=== PATIENT | male | born 1995 ===

== ENCOUNTER 2016-12-12 12:46 | Emergency (ER) | payer OTHER ==
[2016-12-12] MEDS ORDERED: Famotidine TAB* 20 MG PO ONE (14:22)
[2016-12-12] MEDS ORDERED: Ondansetron ODT TAB* 4 MG PO ONE (14:22)
--- NOTE | 2016-12-12 14:52 | UC ---
General HPI - HPI Summary HPI Summary: Patient has been vomiting since about 1130 last night. He was out to eat a few hours before, was feeling fine until then, has been vomiting almost hourly since. low grade temp, no pain. vomiting comes on fast and then pain goes away. - History of Current Complaint Chief Complaint: UCGI Stated Complaint: VOMITING, AND ABDOMINAL PAIN Time Seen by Provider: 12/12/16 14:21 Hx Obtained From: Patient Onset/Duration: Sudden Onset, Lasting Hours Timing: Constant Onset Severity: Moderate Current Severity: Mild Pain Intensity: 3 - Allergy/Home Medications Allergies/Adverse Reactions: Allergies Allergy/AdvReac Type Severity Reaction Status Date / Time No Known Allergies Allergy Verified 12/12/16 13:38 Home Medications: Home Medications NK [No Home Medications Reported] 12/12/16 [History Confirmed 12/12/16] PMH/Surg Hx/FS Hx/Imm Hx Previously Healthy: Yes Endocrine History Of: Denies: Diabetes, Thyroid Disease Cardiovascular History Of: Denies: Cardiac Disorders, Hypertension Respiratory History Of: Denies: COPD, Asthma GI/ History Of: Denies: Ulcer - Surgical History Surgical History: None - Family History Known Family History: Positive: Hypertension - Social History Alcohol Use: None Substance Use Type: None Smoking Status (MU): Never Smoked Tobacco Review of Systems Constitutional: Fatigue Skin: Negative Eyes: Negative ENT: Negative Respiratory: Negative Cardiovascular: Negative Gastrointestinal: Vomiting Genitourinary: Negative Motor: Negative Neurovascular: Negative Musculoskeletal: Negative Neurological: Headache Psychological: Negative All Other Systems Reviewed And Are Negative: Yes Physical Exam Triage Information Reviewed: Yes Appearance: Well-Appearing, Well-Nourished, Ill-Appearing Vital Signs: Initial Vital Signs Temp 100.6 F 12/12/16 13:34 Pulse 98 12/12/16 13:34 Resp 18 12/12/16 13:34 BP 109/65 12/12/16 13:34 Pulse Ox 100 12/12/16 13:34 Vital Signs Reviewed: Yes Eye Exam: Normal Eyes: Positive: Conjunctiva Clear ENT Exam: Normal ENT: Positive: Normal ENT inspection, Hearing grossly normal, Pharynx normal, TMs normal Dental Exam: Normal Neck exam: Normal Neck: Positive: Supple, Nontender, No Lymphadenopathy Respiratory Exam: Normal Respiratory: Positive: Chest non-tender, Lungs clear, Normal breath sounds Cardiovascular Exam: Normal Cardiovascular: Positive: RRR, No Murmur, Pulses Normal - palpable epigastric tenderness, no cva tenderness, no guarding or distention Bowel Sounds: Positive: Present Musculoskeletal Exam: Normal Musculoskeletal: Positive: Strength Intact, ROM Intact, No Edema Neurological Exam: Normal Neurological: Positive: Alert, Muscle Tone Normal Psychological Exam: Normal Skin Exam: Normal Course/Dx - Course Course Of Treatment: hx obtained, exam performed, medications reviewed, zofran and famotidine given with good results. patient is tolerating fluids without difficulty. meds prescribed. - Differential Dx - Multi-Symptom Provider Diagnoses: vomiting Discharge - Discharge Plan Condition: Stable Disposition: HOME Patient Education Materials: Acute Nausea and Vomiting (ED) Forms: *School Release Additional Instructions: take the medications as prescribed. Make sure you continue to take in clear fluids, water, gingerale, gatorade if tolerated, eat as tolerated. if your vomiting becomes uncontrolled or you are having difficulty intaking fluids follow up.
== END 2016-12-12 15:29 | disposition home or self-care (01) ==
LOC: MERGE 12:46 → UCEAST 12:46
DX: R11.10 Vomiting, unspecified (principal); R51 Headache; R53.83 Other fatigue
CPT/HCPCS: 99202; A9270-GY; G0463